=== PATIENT | male | born 1970 | race Caucasian/White ===

== ENCOUNTER 2017-03-09 07:34 | Day surgery (SDC) | payer MEDICAID ==
[2017-03-09] VITALS (7 sets, daily range): BP systolic 98–125; BP diastolic 52–79
[~2017-03-09] VITALS: Ht 167.6 cm; Wt 80.8 kg
[~2017-03-09 07:34] MED LIST: ALBU18HF2 INH; DIPH25CA83 PO; FOLI1TAB16 PO; LACT10SO PO; LORA0.5T PO; MIDO10TA PO; MORP100S12 PO
[2017-03-09] MEDS ORDERED: LIDOcaine 1% 30ml vial SQ ONE (07:50)
[2017-03-09] MEDS ORDERED: normal saline 1000ml 1,000 ML IV PRN (08:05)
[2017-03-09] MEDS ORDERED: albumin (human) 25% 100 ML IV solution IV PRN (08:05)
== END 2017-03-09 09:30 | disposition home or self-care (01) ==
LOC: SSTAY O 07:34
PROVIDERS: ATTEND Radiology Diagnostic Radiology
DX: R18.8 Other ascites (principal); K70.9 Alcoholic liver disease, unspecified; F10.21 Alcohol dependence, in remission; Z98.890 Other specified postprocedural states; Z79.899 Other long term (current) drug therapy
CPT/HCPCS: 49083; A6257; A6449; J3490; J7030; P9047

== ENCOUNTER 2017-03-10 11:38 | Emergency (ER) | payer MEDICAID ==
[~2017-03-10] VITALS: Ht 167.6 cm; Wt 75.0 kg
[~2017-03-10 11:38] MED LIST changes: -MORP100S12 PO
[2017-03-10 13:45] VITALS: BP 103/62
== END 2017-03-10 13:47 | disposition home or self-care (01) ==
LOC: ER 11:39
DX: T81.30XA Disruption of wound, unspecified, initial encounter (principal); F17.210 Nicotine dependence, cigarettes, uncomplicated; J44.9 Chronic obstructive pulmonary disease, unspecified; Z98.890 Other specified postprocedural states; Z56.0 Unemployment, unspecified; Z79.899 Other long term (current) drug therapy; Y92.9 Unspecified place or not applicable
CPT/HCPCS: 99284; A6253; A6446; A6449

== ENCOUNTER 2017-03-12 08:36 | Day surgery (SDC) | payer MEDICAID ==
[2017-03-12] MEDS ORDERED: LIDOcaine 2% 5ml jelly ONE (09:54)
== END 2017-03-12 10:18 | disposition home or self-care (01) ==
LOC: WOUND CARE 08:36
PROVIDERS: ATTEND Surgery
DX: T81.89XD Other complications of procedures, not elsewhere classified, subsequent encounter (principal); L98.491 Non-pressure chronic ulcer of skin of other sites limited to breakdown of skin; F10.21 Alcohol dependence, in remission; Z79.899 Other long term (current) drug therapy
CPT/HCPCS: 97597; A6196; A6266

== ENCOUNTER 2017-03-17 23:49 | Emergency (ER) | payer MEDICAID ==
[~2017-03-17] VITALS: Ht 167.6 cm; Wt 72.0 kg
[2017-03-18] MEDS ORDERED: ipratropium/albuterol 3ml nebule NEB ONE (00:35)
[2017-03-18 01:08] LABS: INR 1.6 INR; PARTIAL THROMBOPLASTIN TIME 38 SECONDS (22-32); PROTHROMBIN TIME 16.6 SECONDS (9.0-12.0)
[2017-03-18 01:10] LABS: BASOPHILS # (AUTO) 0.1 X10'3 (0-0.2); BASOPHILS % (AUTO) 0.9 % (0-1); EOSINOPHILS # (AUTO) 0.8 X10'3 (0-0.9); EOSINOPHILS % (AUTO) 9.4 % (0-6); HEMATOCRIT 22.2 % (42.0-52.0); HEMOGLOBIN 7.7 g/dl (14.0-17.9); LYMPHOCYTES # (AUTO) 2.1 X10'3 (1.1-4.8); LYMPHOCYTES % (AUTO) 24.8 % (21-51); MEAN CORPUSCULAR HEMOGLOBIN 31.6 PG (27.0-31.0); MEAN CORPUSCULAR HGB CONC 34.5 % (33.0-36.5); MEAN CORPUSCULAR VOLUME 91.6 FL (78-98); MEAN PLATELET VOLUME 7.5 FL (7.4-10.4); MONOCYTES # (AUTO) 1.2 X10'3 (0-0.9); MONOCYTES % (AUTO) 13.8 % (2-12); NEUTROPHILS # (AUTO) 4.2 X10'3 (1.8-7.7); NEUTROPHILS % (AUTO) 51.1 % (42-75); PLATELET COUNT 118 X10'3 (140-440); RED BLOOD COUNT 2.43 X10'6 (4.70-6.10); RED CELL DISTRIBUTION WIDTH 17.4 % (11.5-14.5); WHITE BLOOD COUNT 8.4 X10'3 (4.5-11.0)
[2017-03-18 01:11] VITALS: BP 103/75
[2017-03-18 01:12] LABS: ALANINE AMINOTRANSFERASE 14 U/L (12-78); ALBUMIN 2.1 G/DL (3.4-5.0); ALBUMIN/GLOBULIN RATIO 0.6 (1.1-1.5); ALKALINE PHOSPHATASE 175 IU/L (46-116); ANION GAP 6 (8-16); ASPARTATE AMINO TRANSFERASE 28 U/L (10-37); BILIRUBIN,TOTAL 1.6 MG/DL (0.1-1.0); BLOOD UREA NITROGEN 10 MG/DL (7-18); CALCIUM 7.4 MG/DL (8.5-10.1); CHLORIDE 108 MMOL/L (99-107); ETHANOL 0.137 GM/DL (0.0-0.010); MAGNESIUM 1.6 MG/DL (1.5-2.4); SODIUM 141 MMOL/L (135-145); TOTAL CARBON DIOXIDE 27.1 MMOL/L (24-32); TOTAL PROTEIN 5.6 G/DL (6.4-8.2); eGFR 80 ML/MIN
[2017-03-18 01:22] LABS: GLUCOSE 92 MG/DL (70-104)
[2017-03-18] MEDS ORDERED: potassium Cl 20 mEq SR tablet PO ONE (01:45)
== END 2017-03-18 02:35 | disposition left against medical advice (07) ==
LOC: ER 23:49
DX: S00.91XA Abrasion of unspecified part of head, initial encounter (principal); K74.60 Unspecified cirrhosis of liver; F10.129 Alcohol abuse with intoxication, unspecified; R93.8 Abnormal findings on diagnostic imaging of other specified body structures; J44.9 Chronic obstructive pulmonary disease, unspecified; W19.XXXA Unspecified fall, initial encounter; Y93.89 Activity, other specified; Y92.89 Other specified places as the place of occurrence of the external cause; Y99.8 Other external cause status; Z60.2 Problems related to living alone; Z56.0 Unemployment, unspecified
CPT/HCPCS: 36415; 70450; 71045; 80053; 80320; 83735; 85025; 85610; 85730; 94640; 94760; 99285

== ENCOUNTER 2017-03-18 08:15 | Outpatient (CLI) | payer MEDICAID ==
[2017-03-18] MEDS ORDERED: LIDOcaine 2% 5ml jelly ONE (09:28)
== END 2017-03-18 10:10 | disposition home or self-care (01) ==
LOC: WOUND CARE 08:15 → EDSTATUS 08:30 → WOUND CARE 10:10
PROVIDERS: ATTEND Surgery
DX: T81.89XD Other complications of procedures, not elsewhere classified, subsequent encounter (principal); L98.491 Non-pressure chronic ulcer of skin of other sites limited to breakdown of skin; J44.9 Chronic obstructive pulmonary disease, unspecified; F10.129 Alcohol abuse with intoxication, unspecified; F17.210 Nicotine dependence, cigarettes, uncomplicated; Z60.2 Problems related to living alone; Z79.899 Other long term (current) drug therapy; Y83.8 Other surgical procedures as the cause of abnormal reaction of the patient, or of later complication, without mention of misadventure at the time of the procedure
CPT/HCPCS: 99215; A6266

== ENCOUNTER 2017-03-22 08:15 | Outpatient (CLI) | payer MEDICAID ==
[2017-03-22] MEDS ORDERED: LIDOcaine 2% 5ml jelly ONE (09:46)
== END 2017-03-22 10:27 | disposition home or self-care (01) ==
LOC: WOUND CARE 08:15 → EDSTATUS 09:00 → WOUND CARE 10:27
PROVIDERS: ATTEND Surgery
DX: T81.89XD Other complications of procedures, not elsewhere classified, subsequent encounter (principal); L98.491 Non-pressure chronic ulcer of skin of other sites limited to breakdown of skin; J44.9 Chronic obstructive pulmonary disease, unspecified; F10.129 Alcohol abuse with intoxication, unspecified; F17.210 Nicotine dependence, cigarettes, uncomplicated; Z79.899 Other long term (current) drug therapy; Z60.2 Problems related to living alone
CPT/HCPCS: 99215; A6196; A6212; A6213; A6266

== ENCOUNTER 2017-03-25 08:50 | Outpatient (CLI) | payer MEDICAID | END 2017-03-25 09:38 | disposition home or self-care (01) | LOC: WOUND CARE 08:50 → EDSTATUS 09:00 → WOUND CARE 09:38 | PROVIDERS: ATTEND Surgery | DX: T81.89XD Other complications of procedures, not elsewhere classified, subsequent encounter (principal); L98.491 Non-pressure chronic ulcer of skin of other sites limited to breakdown of skin; J44.9 Chronic obstructive pulmonary disease, unspecified; F10.129 Alcohol abuse with intoxication, unspecified; F17.210 Nicotine dependence, cigarettes, uncomplicated; Z60.2 Problems related to living alone; Z79.899 Other long term (current) drug therapy; Y83.8 Other surgical procedures as the cause of abnormal reaction of the patient, or of later complication, without mention of misadventure at the time of the procedure | CPT/HCPCS: 99211; A6196; A6213; A6266; 99214 ==

== ENCOUNTER 2017-03-29 08:40 | Day surgery (SDC) | payer MEDICAID ==
[2017-03-29] MEDS ORDERED: LIDOcaine 2% 5ml jelly ONE (09:50)
== END 2017-03-29 10:36 | disposition home or self-care (01) ==
LOC: WOUND CARE 08:40
PROVIDERS: ATTEND Surgery
DX: T81.89XD Other complications of procedures, not elsewhere classified, subsequent encounter (principal); L98.491 Non-pressure chronic ulcer of skin of other sites limited to breakdown of skin; J44.9 Chronic obstructive pulmonary disease, unspecified; F17.210 Nicotine dependence, cigarettes, uncomplicated; F10.21 Alcohol dependence, in remission; Z79.899 Other long term (current) drug therapy; Y83.8 Other surgical procedures as the cause of abnormal reaction of the patient, or of later complication, without mention of misadventure at the time of the procedure
CPT/HCPCS: 97597; A6021; A6206; A6213; A6222

== ENCOUNTER 2017-04-06 09:32 | Day surgery (SDC) | payer MEDICAID ==
[2017-04-06] MEDS ORDERED: LIDOcaine 2% 5ml jelly ONE (09:55)
== END 2017-04-06 10:54 | disposition home or self-care (01) ==
LOC: WOUND CARE 09:32
PROVIDERS: ATTEND Surgery
DX: T81.89XD Other complications of procedures, not elsewhere classified, subsequent encounter (principal); L98.491 Non-pressure chronic ulcer of skin of other sites limited to breakdown of skin; J44.9 Chronic obstructive pulmonary disease, unspecified; F17.210 Nicotine dependence, cigarettes, uncomplicated; F10.21 Alcohol dependence, in remission; Z79.899 Other long term (current) drug therapy; Y83.8 Other surgical procedures as the cause of abnormal reaction of the patient, or of later complication, without mention of misadventure at the time of the procedure
CPT/HCPCS: 11042; A6021; A6212; A6222; A6258; A4456

== ENCOUNTER 2017-04-08 07:30 | Day surgery (SDC) | payer MEDICAID ==
[~2017-04-08] VITALS: Ht 167.6 cm; Wt 90.2 kg
[2017-04-08] MEDS ORDERED: normal saline 1000ml 1,000 ML IV PRN (07:45)
[2017-04-08] MEDS ORDERED: albumin (human) 25% 100 ML IV solution IV PRN (07:45)
[2017-04-08 07:48] VITALS: BP 121/63
[2017-04-08 09:06] VITALS: BP 115/67
[2017-04-08 09:15] VITALS: BP 107/57
[2017-04-08 09:30] VITALS: BP 107/61
[2017-04-08 09:45] VITALS: BP 111/59
[2017-04-08 10:00] VITALS: BP 105/60
== END 2017-04-08 10:10 | disposition home or self-care (01) ==
LOC: SSTAY O 07:30
PROVIDERS: ATTEND Radiology Vascular & Interventional Radiology
DX: R18.8 Other ascites (principal); K70.9 Alcoholic liver disease, unspecified; J44.9 Chronic obstructive pulmonary disease, unspecified; F32.9 Major depressive disorder, single episode, unspecified; F41.9 Anxiety disorder, unspecified; F10.21 Alcohol dependence, in remission; Z98.890 Other specified postprocedural states; Z87.891 Personal history of nicotine dependence; Z79.899 Other long term (current) drug therapy
CPT/HCPCS: 49083; A6257; J7030; P9047

== ENCOUNTER 2017-04-12 09:25 | Day surgery (SDC) | payer MEDICAID ==
[2017-04-12] MEDS ORDERED: LIDOcaine 2% 5ml jelly ONE (10:15)
== END 2017-04-12 10:47 | disposition home or self-care (01) ==
LOC: WOUND CARE 09:25
PROVIDERS: ATTEND Surgery
DX: T81.89XD Other complications of procedures, not elsewhere classified, subsequent encounter (principal); L98.491 Non-pressure chronic ulcer of skin of other sites limited to breakdown of skin; J44.9 Chronic obstructive pulmonary disease, unspecified; F17.210 Nicotine dependence, cigarettes, uncomplicated; F10.21 Alcohol dependence, in remission; F41.9 Anxiety disorder, unspecified; F32.9 Major depressive disorder, single episode, unspecified; Z79.899 Other long term (current) drug therapy; Y83.8 Other surgical procedures as the cause of abnormal reaction of the patient, or of later complication, without mention of misadventure at the time of the procedure
CPT/HCPCS: 11042; A6021; A6206

== ENCOUNTER 2017-04-19 08:20 | Day surgery (SDC) | payer MEDICAID | END 2017-04-19 10:32 | disposition home or self-care (01) | LOC: WOUND CARE 08:20 | PROVIDERS: ATTEND Surgery | DX: T81.89XD Other complications of procedures, not elsewhere classified, subsequent encounter (principal); L98.491 Non-pressure chronic ulcer of skin of other sites limited to breakdown of skin; J44.9 Chronic obstructive pulmonary disease, unspecified; F17.210 Nicotine dependence, cigarettes, uncomplicated; F10.21 Alcohol dependence, in remission; F41.9 Anxiety disorder, unspecified; F32.9 Major depressive disorder, single episode, unspecified; Z79.899 Other long term (current) drug therapy; Y83.8 Other surgical procedures as the cause of abnormal reaction of the patient, or of later complication, without mention of misadventure at the time of the procedure | CPT/HCPCS: 11042; A6021; A6212 ==

== ENCOUNTER 2017-04-23 07:26 | Day surgery (SDC) | payer MEDICAID ==
[~2017-04-23] VITALS: Ht 167.6 cm; Wt 92.5 kg
[2017-04-23] VITALS (11 sets, daily range): BP systolic 106–132; BP diastolic 55–79
[2017-04-23] MEDS ORDERED: albumin (human) 25% 100 ML IV solution IV PRN (07:45)
[2017-04-23] MEDS ORDERED: normal saline 1000ml 1,000 ML IV PRN (07:45)
[2017-04-23] MEDS ORDERED: LIDOcaine 1% 30ml preserv. free vial SQ STA (08:32)
== END 2017-04-23 10:30 | disposition home or self-care (01) ==
LOC: SSTAY O 07:26
PROVIDERS: ATTEND Radiology Vascular & Interventional Radiology
DX: K70.31 Alcoholic cirrhosis of liver with ascites (principal); F41.9 Anxiety disorder, unspecified; F32.9 Major depressive disorder, single episode, unspecified; F10.21 Alcohol dependence, in remission; J44.9 Chronic obstructive pulmonary disease, unspecified; Z79.899 Other long term (current) drug therapy; Z87.891 Personal history of nicotine dependence; Z98.890 Other specified postprocedural states
CPT/HCPCS: 49083; A6257; A6449; J3490; J7030; P9047

== ENCOUNTER 2017-04-26 08:35 | Day surgery (SDC) | payer MEDICAID ==
[2017-04-26] MEDS ORDERED: LIDOcaine 2% 5ml jelly ONE (09:51)
== END 2017-04-26 10:25 | disposition home or self-care (01) ==
LOC: WOUND CARE 08:35
PROVIDERS: ATTEND Surgery
DX: T81.89XD Other complications of procedures, not elsewhere classified, subsequent encounter (principal); L98.491 Non-pressure chronic ulcer of skin of other sites limited to breakdown of skin; J44.9 Chronic obstructive pulmonary disease, unspecified; F17.210 Nicotine dependence, cigarettes, uncomplicated; F10.21 Alcohol dependence, in remission; F41.9 Anxiety disorder, unspecified; F32.9 Major depressive disorder, single episode, unspecified; Z79.899 Other long term (current) drug therapy; Y83.8 Other surgical procedures as the cause of abnormal reaction of the patient, or of later complication, without mention of misadventure at the time of the procedure
CPT/HCPCS: 97597; A6021; A6212; A4456

== ENCOUNTER 2017-05-07 08:50 | Day surgery (SDC) | payer MEDICAID ==
[2017-05-07] MEDS ORDERED: LIDOcaine 2% 5ml jelly ONE (09:46)
== END 2017-05-07 10:00 | disposition home or self-care (01) ==
LOC: WOUND CARE 08:50
PROVIDERS: ATTEND Surgery
DX: T81.89XD Other complications of procedures, not elsewhere classified, subsequent encounter (principal); L98.491 Non-pressure chronic ulcer of skin of other sites limited to breakdown of skin; J44.9 Chronic obstructive pulmonary disease, unspecified; F17.210 Nicotine dependence, cigarettes, uncomplicated; F10.21 Alcohol dependence, in remission; F41.9 Anxiety disorder, unspecified; F32.9 Major depressive disorder, single episode, unspecified; Z79.899 Other long term (current) drug therapy; Y83.8 Other surgical procedures as the cause of abnormal reaction of the patient, or of later complication, without mention of misadventure at the time of the procedure
CPT/HCPCS: 97597; A6021; A6212; A4456

== ENCOUNTER 2017-05-17 07:29 | Day surgery (SDC) | payer MEDICAID ==
[~2017-05-17] VITALS: Ht 168.9 cm; Wt 81.1 kg
[2017-05-17] VITALS (8 sets, daily range): BP systolic 89–113; BP diastolic 42–64
[2017-05-17] MEDS ORDERED: albumin (human) 25% 100 ML IV solution IV PRN (07:50)
[2017-05-17] MEDS ORDERED: normal saline 1000ml 1,000 ML IV PRN (07:50)
[2017-05-17] MEDS ORDERED: LIDOcaine 1% 30ml preserv. free vial SQ ONE (09:30)
== END 2017-05-17 09:50 | disposition home or self-care (01) ==
LOC: SSTAY O 07:29
PROVIDERS: ATTEND Radiology Vascular & Interventional Radiology
DX: K70.31 Alcoholic cirrhosis of liver with ascites (principal); J44.9 Chronic obstructive pulmonary disease, unspecified; F10.21 Alcohol dependence, in remission; F32.9 Major depressive disorder, single episode, unspecified; F41.9 Anxiety disorder, unspecified; Z98.890 Other specified postprocedural states; Z79.891 Long term (current) use of opiate analgesic; Z87.891 Personal history of nicotine dependence; Z79.899 Other long term (current) drug therapy
CPT/HCPCS: 49083; A6257; J3490; J7030; P9047

== ENCOUNTER 2017-05-25 08:01 | Outpatient (CLI) | payer MEDICAID ==
[~2017-05-25 08:01] MED LIST changes: -MIDO10TA PO
== END 2017-05-25 10:05 | disposition home or self-care (01) ==
LOC: WOUND CARE 08:01 → EDSTATUS 08:30 → WOUND CARE 10:05
PROVIDERS: ATTEND Surgery
DX: T81.89XD Other complications of procedures, not elsewhere classified, subsequent encounter (principal); L98.491 Non-pressure chronic ulcer of skin of other sites limited to breakdown of skin; J44.9 Chronic obstructive pulmonary disease, unspecified; K72.90 Hepatic failure, unspecified without coma; F17.210 Nicotine dependence, cigarettes, uncomplicated; F10.21 Alcohol dependence, in remission; F41.9 Anxiety disorder, unspecified; F32.9 Major depressive disorder, single episode, unspecified; Z79.899 Other long term (current) drug therapy; Y83.8 Other surgical procedures as the cause of abnormal reaction of the patient, or of later complication, without mention of misadventure at the time of the procedure
CPT/HCPCS: 99214

== ENCOUNTER 2017-06-08 07:27 | Day surgery (SDC) | payer MEDICAID ==
[~2017-06-08] VITALS: Ht 168.9 cm; Wt 79.6 kg
[2017-06-08 07:56] VITALS: BP 98/56
[2017-06-08] MEDS ORDERED: normal saline 1000ml 1,000 ML IV PRN (08:00)
[2017-06-08] MEDS ORDERED: albumin (human) 25% 100 ML IV solution IV PRN (08:00)
[2017-06-08] MEDS ORDERED: LIDOcaine 1% 30ml preserv. free vial SQ ONE (08:15)
[2017-06-08 08:35] VITALS: BP 102/64
[2017-06-08] MEDS ORDERED: LIDOcaine 1% (10mg/ml) 2ml vial ONE (08:52)
[2017-06-08 09:00] VITALS: BP 105/60
[2017-06-08 09:18] VITALS: BP 109/63
== END 2017-06-08 10:10 | disposition home or self-care (01) ==
LOC: SSTAY O 07:27
PROVIDERS: ATTEND Radiology Diagnostic Radiology
DX: K70.31 Alcoholic cirrhosis of liver with ascites (principal); J44.9 Chronic obstructive pulmonary disease, unspecified; L40.8 Other psoriasis; F32.9 Major depressive disorder, single episode, unspecified; F41.9 Anxiety disorder, unspecified; F10.21 Alcohol dependence, in remission; Z79.891 Long term (current) use of opiate analgesic; Z79.899 Other long term (current) drug therapy; Z98.890 Other specified postprocedural states; Z87.891 Personal history of nicotine dependence
CPT/HCPCS: 49083; A6257; J3490; J7030; P9047

== ENCOUNTER 2017-06-18 07:21 | Day surgery (SDC) | payer MEDICAID ==
[2017-06-18] VITALS (8 sets, daily range): BP systolic 96–106; BP diastolic 50–60
[~2017-06-18] VITALS: Ht 167.6 cm; Wt 84.3 kg
[~2017-06-18 07:21] MED LIST changes: +LIDOcaine 1% 30ml preserv. free vial SQ STA
[2017-06-18] MEDS ORDERED: normal saline 1000ml 1,000 ML IV PRN (07:40)
[2017-06-18] MEDS ORDERED: albumin (human) 25% 100 ML IV solution IV PRN (07:40)
== END 2017-06-18 10:20 | disposition home or self-care (01) ==
LOC: SSTAY O 07:21
PROVIDERS: ATTEND Radiology Vascular & Interventional Radiology
DX: K70.31 Alcoholic cirrhosis of liver with ascites (principal); J44.9 Chronic obstructive pulmonary disease, unspecified; F10.21 Alcohol dependence, in remission; F32.9 Major depressive disorder, single episode, unspecified; F41.9 Anxiety disorder, unspecified; Z79.891 Long term (current) use of opiate analgesic; Z87.891 Personal history of nicotine dependence; Z98.890 Other specified postprocedural states; Z79.899 Other long term (current) drug therapy
CPT/HCPCS: 49083; J3490; J7030; P9047; A6257

== ENCOUNTER → 2017-07-01 | Day surgery (SDC) | payer MEDICAID ==
[~2017-07-01] VITALS: Ht 167.6 cm; Wt 88.0 kg
[2017-07-01] VITALS (7 sets, daily range): BP systolic 106–115; BP diastolic 50–68
[~2017-07-01] MED LIST changes: +LIDOcaine 1%/PF (10mg/ml) 5ml vial SQ STA; +normal saline 1000ml 1,000 ML IV PRN
[2017-07-01] MEDS: albumin (human) 25% 100 ML IV solution IV PRN ×2 (08:51→09:10)
== END | disposition home or self-care (01) ==
LOC: SSTAY O 07:20
PROVIDERS: ATTEND Radiology Diagnostic Radiology
DX: K70.31 Alcoholic cirrhosis of liver with ascites (principal); F10.21 Alcohol dependence, in remission; F32.9 Major depressive disorder, single episode, unspecified; F41.9 Anxiety disorder, unspecified; J44.9 Chronic obstructive pulmonary disease, unspecified; Z87.891 Personal history of nicotine dependence; Z98.890 Other specified postprocedural states; Z79.899 Other long term (current) drug therapy
CPT/HCPCS: 49083; A6257; A6449; J2001; J7030; P9047

== ENCOUNTER 2017-07-07 07:49 | Day surgery (SDC) | payer MEDICAID ==
[~2017-07-07] VITALS: Ht 167.6 cm; Wt 87.1 kg
[2017-07-07] VITALS (10 sets, daily range): BP systolic 99–109; BP diastolic 54–70
[~2017-07-07 07:49] MED LIST changes: -LIDOcaine 1% 30ml preserv. free vial SQ STA; -LIDOcaine 1%/PF (10mg/ml) 5ml vial SQ STA; -normal saline 1000ml 1,000 ML IV PRN
[2017-07-07] MEDS ORDERED: normal saline 1000ml 1,000 ML IV PRN (08:10)
[2017-07-07] MEDS ORDERED: albumin (human) 25% 100 ML IV solution IV PRN (08:10)
== END 2017-07-07 10:45 | disposition home or self-care (01) ==
LOC: SSTAY O 07:49
PROVIDERS: ATTEND Radiology Diagnostic Radiology
DX: R18.8 Other ascites (principal); K76.9 Liver disease, unspecified; F10.10 Alcohol abuse, uncomplicated; Z98.890 Other specified postprocedural states; Z80.41 Family history of malignant neoplasm of ovary
CPT/HCPCS: 49083; A6257; J7030; P9047

== ENCOUNTER 2017-07-16 07:44 | Day surgery (SDC) | payer MEDICAID ==
[~2017-07-16] VITALS: Ht 167.6 cm; Wt 85.5 kg
[~2017-07-16 07:44] MED LIST changes: +LIDOcaine 1% (10mg/ml) 2ml vial SQ ONE; +LIDOcaine 1% (10mg/ml) 5ml syringe IJ ONE
[2017-07-16 07:55] VITALS: BP 136/61
[2017-07-16 08:50] VITALS: BP 136/61
[2017-07-16] MEDS ORDERED: albumin (human) 25% 100 ML IV solution IV ONE (08:52)
[2017-07-16 09:06] VITALS: BP 96/56
[2017-07-16 09:15] VITALS: BP 100/68
[2017-07-16 09:30] VITALS: BP 107/61
[2017-07-16 09:43] VITALS: BP 103/56
== END 2017-07-16 09:45 | disposition home or self-care (01) ==
LOC: SSTAY O 07:44
PROVIDERS: ATTEND Radiology Diagnostic Radiology
DX: K70.31 Alcoholic cirrhosis of liver with ascites (principal); F10.10 Alcohol abuse, uncomplicated; Z98.890 Other specified postprocedural states; Z79.899 Other long term (current) drug therapy; Z80.41 Family history of malignant neoplasm of ovary
CPT/HCPCS: 49083; A6257; J3490; P9047; J2001

== ENCOUNTER 2017-07-26 07:33 | Day surgery (SDC) | payer MEDICAID ==
[~2017-07-26] VITALS: Ht 167.6 cm; Wt 81.9 kg
[~2017-07-26 07:33] MED LIST changes: -LIDOcaine 1% (10mg/ml) 2ml vial SQ ONE; -LIDOcaine 1% (10mg/ml) 5ml syringe IJ ONE; +LIDOcaine 1% 30ml preserv. free vial SQ STA
[2017-07-26] MEDS ORDERED: normal saline 1000ml 1,000 ML IV PRN (07:50)
[2017-07-26] MEDS ORDERED: albumin (human) 25% 100 ML IV solution IV PRN (07:50)
[2017-07-26] MEDS ORDERED: LIDOcaine 1% 30ml preserv. free vial SQ STA (07:50)
[2017-07-26 07:52] VITALS: BP 115/81
[2017-07-26 08:33] VITALS: BP 101/47
[2017-07-26 08:45] VITALS: BP 110/61
[2017-07-26 09:00] VITALS: BP 110/57
[2017-07-26 09:15] VITALS: BP 146/86
[2017-07-26 09:30] VITALS: BP 161/83
== END 2017-07-26 09:52 | disposition home or self-care (01) ==
LOC: SSTAY O 07:33
PROVIDERS: ATTEND Radiology Diagnostic Radiology
DX: K70.31 Alcoholic cirrhosis of liver with ascites (principal); F32.9 Major depressive disorder, single episode, unspecified; F41.9 Anxiety disorder, unspecified; F10.21 Alcohol dependence, in remission; J44.9 Chronic obstructive pulmonary disease, unspecified; Z87.891 Personal history of nicotine dependence; Z79.891 Long term (current) use of opiate analgesic; Z79.899 Other long term (current) drug therapy; Z98.890 Other specified postprocedural states
CPT/HCPCS: 49083; A6257; J3490; J7030; P9047

== ENCOUNTER 2017-08-06 07:31 | Day surgery (SDC) | payer MEDICAID ==
[~2017-08-06] VITALS: Ht 167.6 cm; Wt 85.3 kg
[2017-08-06] VITALS (7 sets, daily range): BP systolic 98–116; BP diastolic 56–64
[2017-08-06] MEDS ORDERED: normal saline 1000ml 1,000 ML IV PRN (07:55)
[2017-08-06] MEDS ORDERED: albumin (human) 25% 100 ML IV solution IV PRN (07:55)
== END 2017-08-06 09:40 | disposition home or self-care (01) ==
LOC: SSTAY O 07:31
PROVIDERS: ATTEND Radiology Diagnostic Radiology
DX: K70.31 Alcoholic cirrhosis of liver with ascites (principal); F10.21 Alcohol dependence, in remission; F32.9 Major depressive disorder, single episode, unspecified; F41.8 Other specified anxiety disorders; J44.9 Chronic obstructive pulmonary disease, unspecified; Z87.891 Personal history of nicotine dependence; Z79.899 Other long term (current) drug therapy; Z98.890 Other specified postprocedural states; Z80.41 Family history of malignant neoplasm of ovary
CPT/HCPCS: 49083; A6257; J3490; J7030; P9047

== ENCOUNTER 2017-08-18 07:15 | Day surgery (SDC) | payer MEDICAID ==
[~2017-08-18] VITALS: Ht 167.6 cm; Wt 84.0 kg
[~2017-08-18 07:15] MED LIST changes: -LIDOcaine 1% 30ml preserv. free vial SQ STA
[2017-08-18] MEDS ORDERED: normal saline 1000ml 1,000 ML IV PRN (07:30)
[2017-08-18] MEDS ORDERED: albumin (human) 25% 100 ML IV solution IV PRN (07:30)
[2017-08-18 07:40] VITALS: BP 100/66
[2017-08-18] MEDS ORDERED: LIDOcaine 1%/PF 5ML 10 MG/ML VIAL SQ ONE (08:00)
[2017-08-18 08:35] VITALS: BP 101/62
[2017-08-18 09:00] VITALS: BP 106/69
[2017-08-18 09:15] VITALS: BP 109/64
[2017-08-18 09:30] VITALS: BP 100/62
== END 2017-08-18 09:45 | disposition home or self-care (01) ==
LOC: SSTAY O 07:15
PROVIDERS: ATTEND Radiology Diagnostic Radiology
DX: K70.31 Alcoholic cirrhosis of liver with ascites (principal); F32.9 Major depressive disorder, single episode, unspecified; F41.8 Other specified anxiety disorders; J44.9 Chronic obstructive pulmonary disease, unspecified; F10.21 Alcohol dependence, in remission; Z80.41 Family history of malignant neoplasm of ovary; Z79.891 Long term (current) use of opiate analgesic; Z87.891 Personal history of nicotine dependence; Z98.890 Other specified postprocedural states; Z79.899 Other long term (current) drug therapy
CPT/HCPCS: 49083; A6257; J7030; P9047; J2001

== ENCOUNTER 2017-08-31 07:44 | Day surgery (SDC) | payer MEDICAID ==
[2017-08-31] MEDS ORDERED: LIDOcaine 1%/PF 5ML 10 MG/ML VIAL SQ ONE (08:00)
[2017-08-31 08:08] VITALS: BP 106/69
[2017-08-31] MEDS ORDERED: PANT-47 PO (08:17)
== END 2017-08-31 09:10 | disposition home or self-care (01) ==
LOC: SSTAY O 07:44
PROVIDERS: ATTEND Radiology Diagnostic Radiology
DX: K70.31 Alcoholic cirrhosis of liver with ascites (principal); J44.9 Chronic obstructive pulmonary disease, unspecified; F10.21 Alcohol dependence, in remission; F32.9 Major depressive disorder, single episode, unspecified; F41.9 Anxiety disorder, unspecified; Z80.41 Family history of malignant neoplasm of ovary; Z87.891 Personal history of nicotine dependence; Z79.891 Long term (current) use of opiate analgesic; Z98.890 Other specified postprocedural states; Z79.899 Other long term (current) drug therapy
CPT/HCPCS: 76705; A6257; J2001

== ENCOUNTER 2017-09-13 07:23 | Day surgery (SDC) | payer MEDICAID ==
[~2017-09-13] VITALS: Ht 167.6 cm; Wt 81.1 kg
[~2017-09-13 07:23] MED LIST changes: -LORA0.5T PO; +PANT-47 PO
[2017-09-13 07:42] VITALS: BP 108/66
[2017-09-13] MEDS ORDERED: LIDOcaine 1%/PF 5ML 10 MG/ML VIAL SQ ONE (08:00)
[2017-09-13 08:44] VITALS: BP 106/60
[2017-09-13 08:57] VITALS: BP 108/67
[2017-09-13 09:00] VITALS: BP 116/64
== END 2017-09-13 09:00 | disposition home or self-care (01) ==
LOC: SSTAY O 07:23
PROVIDERS: ATTEND Radiology Vascular & Interventional Radiology
DX: K70.31 Alcoholic cirrhosis of liver with ascites (principal); J44.9 Chronic obstructive pulmonary disease, unspecified; F32.9 Major depressive disorder, single episode, unspecified; F41.8 Other specified anxiety disorders; Z79.899 Other long term (current) drug therapy; F10.21 Alcohol dependence, in remission; Z80.41 Family history of malignant neoplasm of ovary; Z79.891 Long term (current) use of opiate analgesic; Z98.890 Other specified postprocedural states; Z87.891 Personal history of nicotine dependence
CPT/HCPCS: 49083; A6257; J2001

== ENCOUNTER 2017-09-29 07:19 | Day surgery (SDC) | payer MEDICAID ==
[~2017-09-29] VITALS: Ht 167.6 cm; Wt 81.0 kg
[2017-09-29] MEDS ORDERED: albumin (human) 25% 100 ML IV solution IV PRN (07:40)
[2017-09-29] MEDS ORDERED: normal saline 1000ml 1,000 ML IV PRN (07:40)
[2017-09-29 08:19] VITALS: BP 112/70
[2017-09-29 08:25] VITALS: BP 108/64
[2017-09-29] MEDS ORDERED: LIDOcaine 1%/PF 5ML 10 MG/ML VIAL SQ ONE (08:30)
[2017-09-29 08:40] VITALS: BP 103/58
[2017-09-29 08:55] VITALS: BP 103/63
[2017-09-29 09:15] VITALS: BP 115/72
== END 2017-09-29 09:30 | disposition home or self-care (01) ==
LOC: SSTAY O 07:19
PROVIDERS: ATTEND Radiology Diagnostic Radiology
DX: K70.31 Alcoholic cirrhosis of liver with ascites (principal); F32.9 Major depressive disorder, single episode, unspecified; F41.9 Anxiety disorder, unspecified; J44.9 Chronic obstructive pulmonary disease, unspecified; F10.21 Alcohol dependence, in remission; Z87.891 Personal history of nicotine dependence; Z79.891 Long term (current) use of opiate analgesic; Z98.890 Other specified postprocedural states; Z79.899 Other long term (current) drug therapy; Z80.41 Family history of malignant neoplasm of ovary
CPT/HCPCS: 49083; A6257; J2001; J7030

== ENCOUNTER 2017-10-27 07:37 | Day surgery (SDC) | payer MEDICAID ==
[2017-10-27] VITALS (7 sets, daily range): BP systolic 103–114; BP diastolic 59–82
[~2017-10-27] VITALS: Ht 167.6 cm; Wt 89.9 kg
[2017-10-27] MEDS ORDERED: normal saline 1000ml 1,000 ML IV PRN (07:55)
[2017-10-27] MEDS ORDERED: albumin (human) 25% 100 ML IV solution IV PRN (07:55)
[2017-10-27] MEDS ORDERED: LIDOcaine 1%/PF 5ML 10 MG/ML VIAL SQ ONE (08:30)
== END 2017-10-27 09:40 | disposition home or self-care (01) ==
LOC: SSTAY O 07:37
PROVIDERS: ATTEND Radiology Diagnostic Radiology
DX: K70.31 Alcoholic cirrhosis of liver with ascites (principal); J44.9 Chronic obstructive pulmonary disease, unspecified; F10.21 Alcohol dependence, in remission; F32.9 Major depressive disorder, single episode, unspecified; F41.8 Other specified anxiety disorders; I50.9 Heart failure, unspecified; N18.6 End stage renal disease; L40.8 Other psoriasis; Z86.19 Personal history of other infectious and parasitic diseases; Z79.891 Long term (current) use of opiate analgesic; Z87.891 Personal history of nicotine dependence; Z98.890 Other specified postprocedural states; Z79.899 Other long term (current) drug therapy; Z80.41 Family history of malignant neoplasm of ovary; Z80.9 Family history of malignant neoplasm, unspecified
CPT/HCPCS: 49083; A6257; J2001; J7030; P9047